=== PATIENT | female | born 1970 | race Caucasian/White ===

== ENCOUNTER 2017-12-09 09:56 | Emergency (ER) | payer OTHER ==
[2017-12-09 12:03] LABS: ADD MAN DIFF? NO
[2017-12-09 12:13] LABS: BASO # 0.1 x10^3/uL (0.0-0.2); BASO % 1 % (0-3); EOS # 0.9 x10^3/uL (0.0-0.7); EOS % 9 % (0-3); HEMOGLOBIN 15.3 g/dL (12.0-15.5); LYMPH # 2.6 x10^3/uL (1.0-4.8); LYMPH % 25 % (24-48); MEAN CORPUSCULAR HEMOGLOBIN 31 pg (25-35); MEAN CORPUSCULAR HGB CONC 34 g/dL (31-37); MEAN CORPUSCULAR VOLUME 90 fL (79-100); MONO # 0.5 x10^3/uL (0.0-1.1); MONO % 5 % (0-9); NEUT # 6.5 x10^3uL (1.8-7.7); NEUT % 61 % (31-73); PLATELET COUNT 319 x10^3/uL (140-400); RED BLOOD COUNT 5.03 x10^6/uL (3.50-5.40); RED CELL DISTRIBUTION WIDTH 13.8 % (11.5-14.5); WHITE BLOOD COUNT 10.6 x10^3/uL (4.0-11.0)
[2017-12-09 12:20] LABS: PROTHROMBIN TIME PATIENT 12.3 SEC (11.7-14.0)
[2017-12-09 12:24] LABS: AMPHETAMINE/METHAMPHETAMINE NEG (NEG); BARBITURATES NEG (NEG); BENZODIAZEPINES NEG (NEG); CANNABINOIDS POS (NEG); COCAINE NEG (NEG); ETHANOL, URINE NEG (NEG); METHADONE NEG (NEG); OPIATES NEG (NEG); PHENCYCLIDINE NEG (NEG)
[2017-12-09 12:26] LABS: ALBUMIN 3.6 g/dL (3.4-5.0); ALK PHOS 134 U/L (46-116); ALT (SGPT) 52 U/L (14-59); ANION GAP 11 (6-14); AST (SGOT) 29 U/L (15-37); BLOOD UREA NITROGEN 15 mg/dL (7-20); CALCIUM 9.5 mg/dL (8.5-10.1); CARBON DIOXIDE 28 mmol/L (21-32); CHLORIDE 100 mmol/L (98-107); DIRECT BILIRUBIN < 0.1 mg/dL (0.0-0.2); GFR 59.2; GLUCOSE 133 mg/dL (70-99); LIPASE 99 U/L (73-393); MAGNESIUM 2.3 mg/dL (1.8-2.4); SODIUM 139 mmol/L (136-145); TOTAL BILIRUBIN 0.5 mg/dL (0.2-1.0); TOTAL PROTEIN 8.2 g/dL (6.4-8.2)
[2017-12-09 12:33] LABS: TROPONINI < 0.017 ng/mL (0.000-0.055)
== END 2017-12-09 13:06 | disposition left against medical advice (07) ==
LOC: ER 09:56
DX: R47.81 Slurred speech (principal); R42 Dizziness and giddiness; H53.8 Other visual disturbances; E78.00 Pure hypercholesterolemia, unspecified; I10 Essential (primary) hypertension; K21.9 Gastro-esophageal reflux disease without esophagitis; Z87.442 Personal history of urinary calculi; Z90.49 Acquired absence of other specified parts of digestive tract; Z90.710 Acquired absence of both cervix and uterus; Z88.2 Allergy status to sulfonamides; Z88.5 Allergy status to narcotic agent; Z88.1 Allergy status to other antibiotic agents
CPT/HCPCS: 36415; 70450; 71045; 80048; 80076; 80307; 83690; 83735; 84484; 85025; 85610; 93005; 99285-25

== ENCOUNTER 2017-12-11 07:49 | Inpatient (IN) | payer OTHER ==
[2017-12-11 08:16] LABS: ADD MAN DIFF? NO
[2017-12-11 08:19] LABS: BASO # 0.1 x10^3/uL (0.0-0.2); BASO % 1 % (0-3); EOS % 9 % (0-3); HEMATOCRIT 45.2 % (36.0-47.0); HEMOGLOBIN 15.5 g/dL (12.0-15.5); LYMPH # 2.5 x10^3/uL (1.0-4.8); LYMPH % 23 % (24-48); MEAN CORPUSCULAR HEMOGLOBIN 31 pg (25-35); MEAN CORPUSCULAR HGB CONC 34 g/dL (31-37); MEAN CORPUSCULAR VOLUME 89 fL (79-100); MONO # 0.5 x10^3/uL (0.0-1.1); MONO % 4 % (0-9); NEUT # 6.7 x10^3uL (1.8-7.7); NEUT % 62 % (31-73); PLATELET COUNT 316 x10^3/uL (140-400); RED BLOOD COUNT 5.06 x10^6/uL (3.50-5.40); RED CELL DISTRIBUTION WIDTH 14.2 % (11.5-14.5); WHITE BLOOD COUNT 10.8 x10^3/uL (4.0-11.0)
[2017-12-11] MEDS: IV NORMAL SALINE 1000ML BAG 1,000 ML IV (08:25)
[2017-12-11 08:26] LABS: BILIRUBIN,URINE SMALL (NEG); CLARITY,URINE CLEAR; COLOR,URINE YELLOW; GLUCOSE,URINE NEGATIVE (NEG); NITRITE,URINE NEGATIVE (NEG); PROTEIN,URINE NEGATIVE (NEG-TRACE)
[2017-12-11 08:30] LABS: AMPHETAMINE/METHAMPHETAMINE NEG (NEG); BARBITURATES NEG (NEG); BENZODIAZEPINES NEG (NEG); CANNABINOIDS POS (NEG); COCAINE NEG (NEG); ETHANOL, URINE NEG (NEG); INR 0.9 (0.8-1.1); METHADONE NEG (NEG); OPIATES NEG (NEG); PARTIAL THROMBOPLASTIN TIME 28 SEC (24-38); PHENCYCLIDINE NEG (NEG); PROTHROMBIN TIME PATIENT 11.9 SEC (11.7-14.0)
[2017-12-11 08:32] LABS: ANION GAP 10 (6-14); BLOOD UREA NITROGEN 16 mg/dL (7-20); CALCIUM 9.3 mg/dL (8.5-10.1); CARBON DIOXIDE 26 mmol/L (21-32); CHLORIDE 103 mmol/L (98-107); GFR 59.2; GLUCOSE 156 mg/dL (70-99); POTASSIUM 4.2 mmol/L (3.5-5.1); SODIUM 139 mmol/L (136-145)
[2017-12-11 08:36] LABS: SQUAMOUS EPITHELIAL CELL,UR MANY /LPF
[2017-12-11 08:37] LABS: BACTERIA,URINE MODERATE /HPF (0-FEW); WBC,URINE OCC /HPF (0-4)
[2017-12-11 08:39] LABS: ALBUMIN 3.5 g/dL (3.4-5.0); ALK PHOS 138 U/L (46-116); ALT (SGPT) 62 U/L (14-59); AST (SGOT) 39 U/L (15-37); DIRECT BILIRUBIN < 0.1 mg/dL (0.0-0.2); LIPASE 157 U/L (73-393); MAGNESIUM 2.2 mg/dL (1.8-2.4); TOTAL BILIRUBIN 0.4 mg/dL (0.2-1.0)
[2017-12-11 08:41] LABS: TROPONINI < 0.017 ng/mL (0.000-0.055)
[2017-12-11 08:47] LABS: NT-PRO BNP 109 pg/mL (0-124)
[2017-12-11 08:47] LABS: CKMB INDEX 1.9 % (0-4); CKMB MASS 2.2 ng/mL (0.0-3.6); CREATINE KINASE 114 U/L (26-192)
[2017-12-11] MEDS ORDERED: IV NORMAL SALINE 1000ML BAG 1,000 ML IV (08:55)
[2017-12-11] MEDS ORDERED: ONDANSETRON PF 4 MG/2 ML VIAL. IV (09:00)
[2017-12-11] MEDS: LOSARTAN POTASSIUM 50 MG TABLET. PO (16:00)
[2017-12-11] MEDS: ASPIRIN ENTERIC COATED 325 MG TABLET.DR. PO (16:47)
[2017-12-11] MEDS: PANTOPRAZOLE 40 MG TABLET.DR. PO (16:48)
[2017-12-11] MEDS: hydroCHLOROthiazide 12.5 MG CAPSULE PO (16:48)
[2017-12-11] MEDS: LACTOBACILLUS RHAMNOSUS GG 1 CAPSULE. PO (21:20)
[2017-12-12] MEDS: hydroCHLOROthiazide 12.5 MG CAPSULE PO (08:03)
[2017-12-12] MEDS: LOSARTAN POTASSIUM 50 MG TABLET. PO (08:05)
[2017-12-12] MEDS: PANTOPRAZOLE 40 MG TABLET.DR. PO (08:05)
[2017-12-12] MEDS: LACTOBACILLUS RHAMNOSUS GG 1 CAPSULE. PO (08:06)
[2017-12-12] MEDS: ASPIRIN ENTERIC COATED 325 MG TABLET.DR. PO (08:06)
== END 2017-12-12 14:41 | disposition home or self-care (01) | DRG 305 ==
LOC: ER 07:49 → 6 SOUTH 08:50
DX: I16.0 Hypertensive urgency (principal); K76.0 Fatty (change of) liver, not elsewhere classified; Z68.41 Body mass index [BMI] 40.0-44.9, adult; F41.9 Anxiety disorder, unspecified; E11.9 Type 2 diabetes mellitus without complications; E66.9 Obesity, unspecified; E78.00 Pure hypercholesterolemia, unspecified; E78.5 Hyperlipidemia, unspecified; I10 Essential (primary) hypertension; K21.9 Gastro-esophageal reflux disease without esophagitis; K52.9 Noninfective gastroenteritis and colitis, unspecified; Z87.442 Personal history of urinary calculi; F17.210 Nicotine dependence, cigarettes, uncomplicated; Z90.710 Acquired absence of both cervix and uterus; Z90.49 Acquired absence of other specified parts of digestive tract; F32.9 Major depressive disorder, single episode, unspecified; Z88.5 Allergy status to narcotic agent; Z88.2 Allergy status to sulfonamides; R47.1 Dysarthria and anarthria; F12.10 Cannabis abuse, uncomplicated
CPT/HCPCS: 36415; 70450; 70551; 80048; 80076; 80307; 81001; 82553; 83690; 83735; 83880; 84443; 84484; 85025; 85610; 85730; 87086; 93005; 96361; 96374; 99285; 99285-25; J2060; J7030